=== PATIENT | female | born 2000 | race Caucasian/White ===

== ENCOUNTER 2019-04-13 06:08 | Inpatient (IN) ==
[2019-04-13] MEDS ORDERED: D5LR 1L W PITOCIN 10 UNITS/L 10 UNITS/1,000 ML BAG IV ONE (06:29)
[2019-04-13] MEDS ORDERED: D5 1/2 NS 1000 ML 1,000 ML IV ONE (06:29)
[2019-04-13] MEDS: D5 1/2 NS 1000 ML 1,000 ML IV SCH ×2 (06:40→18:24)
--- NOTE | 2019-04-13 06:54 | DR.OB ---
OB Quick Note - Assessment/Plan Assessment/Plan: L&D 04/13/19 at 6:45am S-No complaint. O-Afebrile,VSS [id number] with good LTV, +accel, no decel. CTX=occasional,mild CVX=1cm/50%/-1/VTX AROM with clear fluid. IUPC and FSE placed. A-IUP at 39 2/7 weeks for induction Rh- P-Begin pitocin induction Anticipate
[2019-04-13] MEDS ORDERED: PHENERGAN INJ 25 MG IM PRN ×2 (06:58→19:54)
[2019-04-13] MEDS ORDERED: D5LR 1L W PITOCIN 10 UNITS/L 10 UNITS/1,000 ML BAG IV PRN (06:58)
[2019-04-13] MEDS ORDERED: MORPHINE SULFATE INJ 2 MG INJ IVP PRN (06:58)
[2019-04-13] MEDS ORDERED: PITOCIN IVP ONE (06:58)
[2019-04-13] MEDS ORDERED: NUBAIN INJ 200 MG VIAL MULTIDOSE IVP PRN (06:58)
[2019-04-13] MEDS ORDERED: REGLAN INJ 10 MG VIAL IVP PRN (06:58)
[2019-04-13] MEDS ORDERED: PITOCIN ONE (08:54)
[2019-04-13] MEDS ORDERED: NUBAIN INJ 10 ONE (08:54)
[2019-04-13] MEDS ORDERED: D5 1/2 NS 1L W PITOCIN 20 UNITS/L 20 UNITS/1,000 ML BAG IV ONE (10:22)
[2019-04-13] MEDS ORDERED: FENTANYL INJ 100 mcg ONE (10:22)
[2019-04-13] MEDS ORDERED: NAROPIN EPIDURAL 0.2% + FENTANYL 90MCG 60 ML EPI ONE ×2 (10:22→16:53)
[2019-04-13] MEDS ORDERED: LR 1000 ML IV 1,000 ML IV ONE (10:22)
--- NOTE | 2019-04-13 11:53 | DR.OB ---
OB Quick Note - Assessment/Plan Assessment/Plan: L&D 04/13/19 at 11:50am Pitocin=10mu/min. S-No complaint. s/p epidural. O-Afebrile,VSS [id number] with good LTV, +accel, no decel. CTX=q 1 1/2 to 2 min., about 35-65mmHg CVX=2cm/75%/0 A-IUP at 39 2/7 weeks for induction Rh- P-Cont. pitocin induction Anticipate
[2019-04-13] MEDS ORDERED: TYLENOL 325 MG TAB PO PRN (13:55)
--- NOTE | 2019-04-13 16:29 | DR.OB ---
OB Quick Note - Assessment/Plan Assessment/Plan: L&D 04/13/19 at 4:15pm Pitocin=6mu/min. S-No complaint. O-Afebrile,VSS [id number] with good LTV, +accel, no decel. CTX=q 1 1/2 to 2 min., about 45-55mmHg CVX=6cm/90%/0 A-IUP at 39 2/7 weeks for induction Rh- P-Cont. pitocin induction Anticipate
[2019-04-13] MEDS: D5 1/2 NS 1000 ML 1,000 ML with PITOCIN 20 UNITS IV SCH ×2 (19:40)
--- NOTE | 2019-04-13 19:53 | DR.OB ---
OB Quick Note - Assessment/Plan Assessment/Plan: Delivery Note [employer] 04/13/19 at 7:37pm Patient complete and pushing. Head delivered over intact perineum. No nuchal cord. Nose and mouth bulb suctioned. Body delivered over intact perineum. Cord clamped x 2 and cut. Infant handed to attendant. Cord sent for gases. Placenta delivered spontaneously / intact / 3 vessel cord. No CVX / vaginal / perineal tears noted. Viable female infant, VTX/OA, wt=7'0" and 8/9, stable to NBN. Mother stable to RR. WJP=[id number].
[2019-04-13] MEDS ORDERED: MILK OF MAGNESIA PO PRN (20:30)
[2019-04-13] MEDS ORDERED: DERMOPLAST SPRAY TOP PRN (20:30)
[2019-04-13] MEDS ORDERED: ADACEL or BOOSTRIX TDaP VACCINE IM ONE (20:30)
[2019-04-13] MEDS ORDERED: HYPERRHO S/D (or RHOGAM) IM PRN (20:30)
[2019-04-13] MEDS ORDERED: AMBIEN PO PRN (20:30)
[2019-04-13] MEDS ORDERED: AFLURIA II4 or FLUARIX II4 IM ONE (21:00)
[2019-04-14 05:29] LABS: HEMATOCRIT 29.1 % (36.0-47.0)
[2019-04-14] MEDS: MOTRIN TAB 800 MG PO PRN ×2 (09:22→20:30)
[2019-04-14] MEDS: PRENATAL PLUS PO SCH (09:23)
[2019-04-14] MEDS: D5 1/2 NS 1000 ML 1,000 ML with PITOCIN 20 UNITS IV SCH ×4 (20:34→20:35)
[2019-04-15] MEDS: D5 1/2 NS 1000 ML 1,000 ML with PITOCIN 20 UNITS IV SCH ×2 (05:37)
[2019-04-15] MEDS ORDERED: DEPO-PROVERA CONTRACEPTIVE INJ IM ONE (07:27)
[2019-04-15] MEDS ORDERED: ADACEL or BOOSTRIX TDaP VACCINE IM ONE (09:17)
[2019-04-15] MEDS ORDERED: AFLURIA II4 or FLUARIX II4 IM ONE (09:17)
[2019-04-15] MEDS: PRENATAL PLUS PO SCH (09:59)
[2019-04-15] MEDS: MOTRIN TAB 800 MG PO PRN (10:08)
[2019-04-15 11:45] VITALS: BP 109/71
== END 2019-04-15 12:50 | disposition home or self-care (01) | DRG 807 ==
LOC: LD 06:08 → MED/SURG 20:31
PROVIDERS: ADMIT Specialist; ATTEND Specialist
DX: O36.0920 Maternal care for other rhesus isoimmunization, second trimester, not applicable or unspecified; Z37.0 Single live birth; Z23 Encounter for immunization; Z3A.39 39 weeks gestation of pregnancy
CPT/HCPCS: 36415; 59409; 80048; 80307; 81001; 85014; 85018; 85025; 86592; 86850; 86900; 86901; 90674; 90686; 90715; A4222; S0197; G0434; J1050; J2300; J2590; J3010; J3490; J7120; S5010